=== PATIENT | female | born 1970 | race Caucasian/White ===

== ENCOUNTER 2021-11-04 09:56 | Outpatient (REF) | payer OTHER, SELFPAY ==
[2021-11-04 10:25] LABS: COVID-19 Test Negative (Negative)
== END 2021-11-04 09:57 | disposition home or self-care (01) ==
LOC: HO.LAB 09:56
PROVIDERS: Visit Provider Internal Medicine
DX: Z20.822 Contact with and (suspected) exposure to COVID-19 (principal)
CPT/HCPCS: 87635; C9803

== ENCOUNTER 2022-02-05 23:50 | Emergency (ER) | payer OTHER, SELFPAY ==
[2022-02-06 00:08] VITALS: BP 132/71; PULSE 95; O2SAT 98
[2022-02-06 00:09] VITALS: BP 128/71; PULSE 73; RESP 16; TEMP 37; O2SAT 99; BMI 28.7
[2022-02-06 00:57] VITALS: BP 102/56; PULSE 71; RESP 16; TEMP 36.8; O2SAT 97
--- NOTE | 2022-02-06 01:12 | ED.BACK ---
HPI - Back Pain/Injury General Chief Complaint: Back Pain/Injury Stated Complaint: back pain Time Seen by Provider: 02/06/22 00:58 Source: patient Mode of arrival: EMS Limitations: no limitations History of Present Illness HPI Narrative: 51-year-old female who presents emergency department for evaluation of lower back pain and left hip pain. The patient states that she has a history of chronic lower back pavement secondary to disc disease. She states that she has L4-L5 disc disease amp injuring the nerves causing her to have pain in both her legs. She states she is scheduled for a surgery March 2022. She states that over the past 2 days she has had increased lower back pain. She also states she is having severe pain and the left hip which radiates down her left leg. She has had similar pain in her left lateral hip area in the past. states that in the past she has had a steroid injection over the left hip area which is improved this pain. She states that the left hip pain is a constant, sharp pain which is 10/10 and is worse with movement of the left hip. She states that she had a recent MRI of her lower back and an x-ray of her left hip which revealed no significant issues with the hip. Patient also has a history of COPD. She states that she has had increased cough over the past 1-2 days. The cough is productive of thick, brown sputum with no blood in the sputum. She denied fever, chills, rhinorrhea, chest pain. She states that she does feel short of breath but this is chronic secondary to her COPD. She continues to smoke 1/2 pack of cigarettes per day. MD elicited complaint: back pain and other (Left lateral hip pain) Pertinent past history: prior back pain and other (L4-L5 disc disease) Onset (ago): day(s) (2) Timing: constant Severity: severe Pain scale (0-10): 10 Similar Symptoms Previously: Yes Quality: sharp Location: lumbar spine and left lower back Radiation: left leg below the knee and right leg below the knee Exacerbating factors: movement Relieving factors: none Associated symptoms: difficulty walking Work related injury: No Related Data Previous Rx's Medication Instructions Recorded azithromycin 250 mg tablet See Rx Instructions .ROUTE 02/06/22 (Zithromax Z-Fermin) .COMPLEX #6 tab ibuprofen 600 mg tablet 600 mg PO Q6H PRN #30 tab 02/06/22 morphine 15 mg immediate release 15 mg PO Q4-6H PRN #10 tab 02/06/22 tablet Allergies Allergy/AdvReac Type Severity Reaction Status Date / Time No Known Allergies Allergy Unverified 06/17/20 18:09 [No Known Allergies*] [facility] Past Medical History [facility] Narrative: Past medical history: Chronic back pain secondary to disc disease, COPD, bronchitis. Social history: She smokes 1/2 pack of cigarettes per day times 37 years. She denies alcohol use. She smokes marijuana daily. She states that she has a remote history opiate use and currently takes Suboxone 4 mg daily. Medical History (Updated 02/06/22 @ 01:33 by Kody Ortega MD) Anxiety COPD (chronic obstructive pulmonary disease) Social History Social History Advance Directives: No Advance Directives Information Provided: Yes Physical Exam Vital Signs: Vital Signs: Last Vital Signs Temp 98.3 F 02/06/22 00:57 Pulse 71 02/06/22 00:57 Resp 16 02/06/22 00:57 BP 102/56 L 02/06/22 00:57 Pulse Ox 97 02/06/22 00:57 BMI result Body Mass Index 28.7 Const: General: cooperative and no acute distress Orientation/consciousness: oriented to person and oriented to place Limitations: no limitations HEENT: Head: Yes normal to inspection, Yes normocephalic and Yes atraumatic Ears: external ears normal General nose exam: Normal external nose present Face and sinus: Yes normal facial exam Mouth: Normal oral and palatal mucosa present Throat: Yes posterior oropharynx normal Eyes: General: appearance normal, both eyes and all related structures Pupils: Equal, round and reactive pupils present Neck: Neck: Yes normal visual inspection, Yes no lymphadenopathy, Yes trachea midline and Yes supple Chest: Chest palpation & inspection: normal inspection of the chest and normal palpation of entire chest wall Resp: Effort & Inspection: normal respiratory effort and able to speak in complete sentences Auscultation: rhonchi (Diffuse) Cardio: Rate: regular rate Rhythm: regular rhythm Heart sounds: S1 normal heart sound present, S2 normal heart sound present and no murmurs GI: Inspection: Yes normal to inspection Palpation (GI): Soft to palpation, nontender and no guarding Auscultation: normal bowel sounds Back/Spine/Pelvis: Other: Patient has tenderness with palpation of her lumbar spine and the lumbar sacral paraspinal muscles bilaterally. She has negative straight leg raises bilaterally. Skin: General skin exam: no rashes or lesions noted Neuro: General: oriented to person and oriented to place Cranial nerves: Yes CN's II-XII intact bilaterally and Yes Equal, round and reactive pupils present Cognition (Neuro): normal cognition Motor exam (neuro): 5/5 motor strength present throughout Extrem: Other: Patient has very localize tenderness palpation over her left lateral greater trochanteric area, there is no increased warmth or erythema this area, she has no significant pain with flexion or extension of the left hip joint or with left hip rotation. Psych: Appearance: grossly normal Speech and movement: Normal speech and movement present Affect: normal affect Attitude: cooperative Thought process: Normal thought process present Thought content: Normal thought content present Course Course Course Narrative: 51-year-old female who presents emergency department for evaluation of lower back pain x2 days, left hip pain x2 days, productive cough and shortness of breath x2 days. Patient's vital signs were unremarkable. The patient does have pain with palpation of her lumbar spine and her lumbar paraspinal muscles. She also has pain with palpation over the left lateral hip over the trochanter bursa region. Lung exam did reveal diffuse rhonchi. At this time I suspect the patient does have left lateral greater trochanter bursitis and I will inject this area with Depo-Medrol 40 mg and lidocaine 5 cc. The patient's lumbar pain will be treated with morphine 8 mg IM. The patient will be started on Zithromax Z-Fermin for her bronchitis. Patient will be discharged home with a prescription for Z-Fermin and for morphine for her pain. Procedures Procedure Narrative Procedure Narrative: Right trochanteric bursa steroid injection: The patient did give me verbal informed consent to proceed with the procedure. The area maximal tenderness over the left trochanteric area was located. This area was cleaned with Betadine and alcohol wipes. Using an 18 gauge needle I injected 40 mg Depo-Medrol and 5 cc of lidocaine into the bursa area. The patient tolerated the procedure well. Discharge Plan Discharge Clinical Impression: Strain of lumbar region, Bursitis, trochanteric, Bronchitis Patient Disposition: Home, Self-Care Instructions: Hip Bursitis (ED), Acute Bronchitis (ED), Acute Low Back Pain (ED) Additional Instructions: You have tenderness over your left hip bursa, this is consistent with bursitis. Your injected with 40 mg of Depo-Medrol (this is a long-acting steroid) and 5 mL of lidocaine. Sometimes 1-2 days after injection the pain can get worse but the pain should improve by day 3-4 and hopefully resolve completely after 1 week. You also received morphine 8 mg IM for your back pain. Take ibuprofen 600 mg pills, 1 pills every 6 hours as needed for pain. Take Tylenol (acetaminophen) 500 mg pills, 2 pills every 4-6 hours as needed for pain. For pain not relieved by ibuprofen or Tylenol take morphine 15 mg pills, 1 pill every 4 hours as needed for pain. Do not drive or work while taking this medication since they can cause sleepiness. Morphine is a narcotic medication that can be addicting. If you are concerned about addiction you can ask the pharmacist for less pills or do not get this prescription filled. I also believe that you have bronchitis. Take Zithromax (azithromycin) Z-Fermin as prescribed. Day 1 take 2 pills, each day after that take 1 pill for total of 5 days. This medication states in your system for 7-10 days and continues to work despite only taking it for 5 days. Follow-up with your doctor in 2 days. Please return to the emergency department if your symptoms get worse or if you develop any symptoms that are concerning to you. Prescriptions: New azithromycin [Zithromax Z-Fermin] 250 mg tablet See Rx Instructions .ROUTE .COMPLEX Qty: 6 0RF Rx Instructions: take 500 mg today (day 1), then 250 mg for 4 days (days 2-5) morphine 15 mg tablet 15 mg PO Q4-6H PRN (Reason: pain) Qty: 10 0RF Rx Instructions: The patient may ask for partial fill ibuprofen 600 mg tablet 600 mg PO Q6H PRN (Reason: pain) Qty: 30 0RF
[2022-02-06] MEDS: Morphine Sulfate 10 MG/ML CARTRIDGE 8 MG IM (01:24)
[2022-02-06 02:00] VITALS: BP 100/64; PULSE 71; RESP 16; TEMP 36.6; O2SAT 95
[2022-02-06] MEDS: Lidocaine HCl 1 % MPF 5 ML VIAL INFILTRATI (02:01)
[2022-02-06] MEDS: methylPREDNISolone acetate 40 MG VIAL IM (02:05)
--- NOTE | 2022-02-06 02:20 | PC.NURSE ---
I assumed care of this patient upon her arrival to bed 7. She presents for evaluation of severe back pain acute on chronic. She was administered IM Morphine and IM Depo-medrol (by Shannon MCGRAW - was unable to scan barcode for DepoMedrol despite multiple attemptes. Right drug/dose/route./patient/times all verified prior to admin.) Pt discharged. She verbalized an understnading of all DC orders and ambulated out of the ED independently and with steady gait.
== END 2022-02-06 02:22 | disposition home or self-care (01) ==
PROVIDERS: Emergency Provider Emergency Medicine Emergency Medical Services
DX: M54.50 Low back pain, unspecified (principal); M70.62 Trochanteric bursitis, left hip; J40 Bronchitis, not specified as acute or chronic; F17.210 Nicotine dependence, cigarettes, uncomplicated; Z71.6 Tobacco abuse counseling; Z79.899 Other long term (current) drug therapy
CPT/HCPCS: 20610; 96372; 99283; 99284; J1020; J1040; J2270; J2920

== ENCOUNTER 2022-06-07 15:45 | Emergency (ER) | payer OTHER, SELFPAY ==
[2022-06-07 16:18] VITALS: BP 95/82; PULSE 86; RESP 19; TEMP 36.9; O2SAT 97; BMI 28.7
== END 2022-06-07 21:37 | disposition left against medical advice (07) ==
LOC: HO.ED 21:23
PROVIDERS: Emergency Provider Emergency Medicine; PCP Radiology Radiation Oncology
DX: R22.43 Localized swelling, mass and lump, lower limb, bilateral (principal); M25.552 Pain in left hip
CPT/HCPCS: 99281

== ENCOUNTER 2022-06-10 01:27 | Emergency (ER) | payer OTHER, SELFPAY ==
[2022-06-10 01:36] VITALS: BP 111/54; BP 131/82; PULSE 100; PULSE 76; RESP 20; TEMP 36.9; O2SAT 97; O2SAT 99; BMI 34.4
--- NOTE | 2022-06-10 01:45 | ED.EXTPRO ---
HPI - Extremity Problem General Chief complaint: Extremity Injury, Lower Stated complaint: Headache s/p spinal infusion Time Seen by Provider: 06/10/22 01:32 Source: patient and old records reviewed Mode of arrival: EMS Limitations: no limitations History of Present Illness Complaint: joint pain Onset (ago): day(s) (2) Pain Consistency: constant Location: left and lower extremity Quality: burning and stabbing Radiation: distal Relieving factors: immobilization Exacerbating factors: weight bearing, walking and palpation Associated symptoms: denies other symptoms Context: other (recent back surgery, hx of prior L hip pain states injections help in the past - she is here asking for another steroid injection. reports she just had normal US of the leg for DVT, normal labs, negative xray for injury, cannot take the pain tonight) Related Data Previous Rx's Medication Instructions Recorded azithromycin 250 mg tablet See Rx Instructions PO .COMPLEX #6 02/06/22 (Zithromax Z-Fermin) tabs ibuprofen 600 mg tablet 600 mg PO Q6H PRN pain #30 tabs 02/06/22 morphine 15 mg immediate release 15 mg PO Q6H PRN pain 3 days #8 02/06/22 tablet tabs Allergies Allergy/AdvReac Type Severity Reaction Status Date / Time No Known Allergies Allergy Unverified 06/17/20 18:09 [No Known Allergies*] Review of Systems Review of Systems: Constitutional : No Fever, No Chills ENT/Mouth : No Ear Pain, No Hoarseness, No sore throat Eyes: No Eye Pain, No Swelling, No Redness, No Foreign Body Cardiovascular : No Chest Pain, No SOB Respiratory : No Cough, No Dyspnea Gastrointestinal : No Nausea, No Vomiting, No Diarrhea, No abdominal Pain Genitourinary : No Dysuria, No Hematuria Musculoskeletal : positive joint pain, No Myalgias, No Joint Swelling Skin : No Skin lacerations, No rash Neuro : No Weakness, No Numbness, No Loss of Consciousness, No Dizziness, No Headache Psych : No Anxiety/Panic, No Depression Heme/Lymph: no easy bruising, no Lymphadenopathy Endocrine : No Polyuria, No Polydipsia All other systems reviewed and are negative PMFSH Past Medical History Attestation statement: The following information was validated with the patient. Medical History Anxiety Bursitis Chronic back pain COPD (chronic obstructive pulmonary disease) Social History Social History (Updated 06/10/22 @ 01:45 by Verónica Castellano DO) Patient Tobacco Use Status: Current everyday Tobacco user Substance Use Type: Former Substance User Advance Directives: No Advance Directives Information Provided: No Physical Exam Vital Signs: Vital Signs: Last Vital Signs Temp 98.4 F 06/10/22 01:36 Pulse 100 06/10/22 01:36 Resp 20 06/10/22 01:36 BP 131/82 06/10/22 01:36 Pulse Ox 97 06/10/22 01:36 O2 Del Method 06/10/22 01:36 BMI result Body Mass Index 34.4 Appearance: Alert. Oriented X3. No acute distress. Anxious Eyes: Pupils equal, round and reactive to light. ENT: Pharynx normal. Neck: Normal inspection. Neck supple. CVS: Normal heart rate and rhythm. Pulses normal. Respiratory: No respiratory distress. Breath sounds normal. Abdomen: Soft and nontender. Skin: Skin warm and dry. Normal skin color. Normal skin turgor. Extremities: 1+ pitting lower extremity edema. L hip ttp along upper area and bursa no erythema noted Neuro: Oriented X 3. No motor deficit. No sensory deficit. Course Course Course Narrative: patient given injection now states she wants to leave and deal with her pain at home standing up and ready to walk out. MDM - Extremity (Nontraumatic) MDM Narrative Medical decision making narrative: 51 yo female with hx of COPD, anxiety, chronic pain prior substance abuse on suboxone reports worsening L hip pain she does have good outpatient care including recent negative DVT study, normal labs and xray. She is due for a MRI as well. She is here c/o pain she is NV intact no signs of infection. Asking for steroid injection - will perform. At this time will give valium for anxiolytic. Procedures Procedure Narrative Procedure Narrative: L trochanteric bursa steroid injection: The patient did give me verbal informed consent to proceed with the procedure at her request.? The area maximal tenderness over the left trochanteric area was located.? This area was cleaned with Betadine and alcohol wipes.? Using an 18 gauge needle I injected 40 mg Depo-Medrol and 5 cc of lidocaine into the bursa area.? The patient tolerated the procedure well. Discharge Plan Discharge Clinical Impression: Acute pain of left hip Bursitis of hip Qualifiers: Hip bursitis location: trochanteric bursitis Laterality: left Qualified Code(s): M70.62 - Trochanteric bursitis, left hip Patient Disposition: Home, Self-Care Instructions: Hip Bursitis (ED), Hip Pain (ED) Additional Instructions: return to ED for any worsening symptoms or concerns you were given an injection as requested in the ED. Monitor for any increased redness, swelling, pain, yellow drainage or fevers please follow up with your doctors Prescriptions: No Action azithromycin [Zithromax Z-Fermin] 250 mg tablet See Rx Instructions .ROUTE .COMPLEX Qty: 6 0RF Rx Instructions: take 500 mg today (day 1), then 250 mg for 4 days (days 2-5) ibuprofen 600 mg tablet 600 mg PO Q6H PRN (Reason: pain) Qty: 30 0RF morphine 15 mg tablet 15 mg PO Q6H PRN (Reason: pain) 3 Days Qty: 8 0RF Rx Instructions: patient may partial fill - okay
[2022-06-10] MEDS: diazePAM 2 MG TABLET 5 MG PO (01:57)
[2022-06-10] MEDS: methylPREDNISolone acetate 40 MG VIAL INTRAARTIC (03:23)
== END 2022-06-10 03:44 | disposition home or self-care (01) ==
PROVIDERS: Emergency Provider Emergency Medicine
DX: M70.62 Trochanteric bursitis, left hip (principal); Y93.9 Activity, unspecified; M25.552 Pain in left hip; R60.0 Localized edema; F11.20 Opioid dependence, uncomplicated
CPT/HCPCS: 20610; 99282; 99284; J1020; J1040; J2920

== ENCOUNTER 2022-12-14 15:46 | Emergency (ER) | payer OTHER, SELFPAY ==
--- NOTE | ~2022-12-14 | XR_ITS ---
EXAMINATION: XR CHEST CLINICAL INFORMATION: Shortness of breath COMPARISON: 11/10/2014 TECHNIQUE: Frontal view of the chest was obtained. FINDINGS: Heart size normal. Scoliosis with Hunt rods present. There is a new area of infiltration seen in the right upper lobe consistent with pneumonia. Left basilar atelectasis is present. No pleural effusions. No gross CHF. XR/XR chest 1V IMPRESSION: Right upper lobe pneumonia.
[2022-12-14 16:02] VITALS: BP 133/78; BP 138/89; PULSE 108; PULSE 96; RESP 24; TEMP 37.1; O2SAT 100; O2SAT 94; BMI 35.6
--- NOTE | 2022-12-14 18:33 | ECG_ITS ---
Test Reason : sob Blood Pressure : / mmHG Vent. Rate : 081 BPM Atrial Rate : 081 BPM P-R Int : 184 ms QRS Dur : 088 ms QT Int : 358 ms P-R-T Axes : 063 053 044 degrees QTc Int : 415 ms Normal sinus rhythm Normal ECG No previous ECGs available Referred By: Dorothy Chambers Electronically Signed By:Darryl Gentile
[2022-12-14 19:12] LABS: COVID-19 Test Negative (Negative); IDNOW Serial# 55D5AD1C
[2022-12-14 19:31] VITALS: BP 136/67; PULSE 86; RESP 19; TEMP 36.7; O2SAT 94
[2022-12-14] MEDS: methylPREDNISolone Sod Succ 125 MG/2 ML VIAL IVPUSH (20:20)
[2022-12-14] MEDS: Azithromycin 500 MG TABLET PO (20:20)
[2022-12-14] MEDS: ondansetron HCL 4 MG/2 ML VIAL IVPUSH (20:20)
[2022-12-14] MEDS: Amoxicillin/Potassium Clav 500 MG TABLET PO (20:20)
[2022-12-14] MEDS: 0.9 % Sodium Chloride 1,000 ML 999 ML IV (20:20)
[2022-12-14] MEDS: Morphine Sulfate 4 MG/ML CARTRIDGE IVPUSH (20:20)
[2022-12-14 20:33] VITALS: PULSE 92; RESP 18
--- NOTE | 2022-12-14 20:33 | ED_ITS ---
HPI - General Adult General Chief complaint: General Medical Stated complaint: difficulty breathing Time Seen by Provider: 12/14/22 19:58 Source: patient and RN notes reviewed Mode of arrival: EMS Limitations: no limitations History of Present Illness HPI narrative: 52-year-old female past medical history significant for asthma presents for evaluation of shortness of breath and left hip pain. Patient reports that she has a history of left hip bursitis that ?flares up every now and then. ? She reports that she tried to get an appointment with her cigar head puncher to get a ?cortisone injection but they could not get me and today. ? She complains of 10/10 pain to the left hip. She also states that she has had increasing shortness of breath for the last 3 months. Patient reports that she finished a course of doxycycline about 2 weeks ago. She also reports that she was diagnosed with ?nodules on my lung. ? She reports that she is in the middle of a workup for that Patient reports that she continues to smoke but ?I am trying to cut back since I was diagnosed with my nodules. ? Denies any fevers, chills Patient reports that she is out of her rescue inhaler Related Data Previous Rx's Medication Instructions Recorded azithromycin 250 mg tablet See Rx Instructions PO .COMPLEX #6 02/06/22 (Zithromax Z-Fermin) tabs ibuprofen 600 mg tablet 600 mg PO Q6H PRN pain #30 tabs 02/06/22 morphine 15 mg immediate release 15 mg PO Q6H PRN pain 3 days #8 02/06/22 tablet tabs albuterol sulfate 90 mcg/actuation 1 inh inhalation QID PRN shortness 12/14/22 aerosol inhaler of breath or wheezing #8.5 grams amoxicillin 500 mg-potassium 1 tab PO BID #14 tabs 12/14/22 clavulanate 125 mg tablet (Augmentin) azithromycin 250 mg tablet 250 mg PO DAILY 4 days #4 tabs 12/14/22 fluconazole 100 mg tablet 100 mg PO DAILY #1 tab 12/14/22 (Diflucan) oxycodone-acetaminophen 5 mg-325 1 tab PO Q8H PRN pain #12 tabs 12/14/22 mg tablet (Percocet) Allergies Allergy/AdvReac Type Severity Reaction Status Date / Time No Known Allergies Allergy Verified 12/14/22 16:01 [No Known Allergies*] Review of Systems Constitutional: Constitutional: Reports as per HPI, Denies chills, Denies fever(s) and Denies headache(s) ENT: Denies headache(s) Cardiovascular: Cardiovascular: Denies chest pain and Reports dyspnea Respiratory: Respiratory: Reports chest congestion, Reports cough, Reports pain with cough, Reports dyspnea and Reports wheezing Gastrointestinal: Gastrointestinal: Denies abdominal pain, Denies constipation and Denies vomiting Genitourinary: Genitourinary: Denies dysuria Musculoskeletal: Comments: Reports left hip pain Neurologic: Denies headache(s) and Denies focal weakness Allergic/Immunologic: Allergic/Immunologic: Reports wheezing PMFSH Past Medical History Medical History Anxiety Bursitis Chronic back pain COPD (chronic obstructive pulmonary disease) Social History Social History (Updated 06/10/22 @ 01:45 by Verónica Castellano DO) Patient Tobacco Use Status: Current everyday Tobacco user Substance Use Type: Former Substance User Advance Directives: No Advance Directives Information Provided: Yes Physical Exam ED Vital Signs: Vital Signs - 24 hr 12/14/22 16:02 12/14/22 19:31 Temperature 98.7 F 98.1 F Pulse Rate 96 86 Respiratory Rate 24 H 19 Blood Pressure 138/89 136/67 Pulse Oximetry 94 94 Oxygen Delivery Method Room Air Nasal Cannula Oxygen Flow Rate 2 BMI result Body Mass Index 35.6 Const General: healthy appearing, comfortable, no acute distress, alert and awake Nutritional Appearance: well nourished Orientation/consciousness: patient oriented x3 HENMT Head: Yes normocephalic and Yes atraumatic Throat: Yes posterior oropharynx normal Eyes Eyelids: Yes eyelids normal Conjunctivae: conjunctivae normal Sclerae: sclerae normal Corneas: corneas normal Pupils: Equal, round and reactive pupils present EOM: EOMs intact bilaterally Neck Neck: Yes full ROM Resp Effort & Inspection: normal respiratory effort, able to speak in complete sentences, no audible wheezes and not labored Auscultation: rhonchi right upper and wheezes throughout Cardio Rate: regular rate Rhythm: regular rhythm GI Inspection: No distended Palpation (GI): Soft to palpation, not firm, nontender, no guarding and not rigid Auscultation: normoactive bowel sounds Skin General skin exam: no rashes or lesions noted and elasticity normal Neuro General: patient oriented x3 Cranial nerves: Yes CN's II-XII intact bilaterally, Yes Equal, round and reactive pupils present and Yes Bilaterally intact EOM present Cognition (Neuro): normal cognition Extrem Other: Moving all extremities well without any obvious deformities General: Yes normal to inspection Left lower extremity: normal to inspection and hip/thigh (Tenderness to palpation all left hip without any increased warmth ) Medications Administered Generic Name Dose Route Start Last Admin Trade Name Freq PRN Reason Stop Dose Admin Sodium Chloride 1,000 mls @ 999 mls/hr 12/14/22 20:15 12/14/22 20:20 Ns IV 12/14/22 21:15 999 mls/hr .Q1H1M CASSIA Administration Discontinued Medications Generic Name Dose Route Start Last Admin Trade Name Freq PRN Reason Stop Dose Admin Amoxicillin/Clavulanate Potassium 500 mg 12/14/22 20:10 12/14/22 20:20 Amoxicillin/Potassium Clav 500 Mg Tablet PO 12/14/22 20:11 500 mg ONCE ONE Administration Azithromycin 500 mg 12/14/22 20:10 12/14/22 20:20 Azithromycin 500 Mg Tablet PO 12/14/22 20:11 500 mg ONCE ONE Administration Albuterol Sulfate 5 mg/ 0 mg 12/14/22 20:05 12/14/22 20:27 Ipratropium [place] 0.5 mg INHALE 12/14/22 20:06 1 each ONCE ONE Administration Methylprednisolone Sodium Succinate 125 mg 12/14/22 20:05 12/14/22 20:20 Methylprednisolone Sod Succ 125 Mg/2 Ml Vial IVPUSH 12/14/22 20:06 125 mg ONCE ONE Administration Morphine Sulfate 4 mg 12/14/22 20:05 12/14/22 20:20 Morphine Sulfate 4 Mg/Ml Cartridge IVPUSH 12/14/22 20:06 4 mg ONCE ONE Administration Protocol Ondansetron HCl 4 mg 12/14/22 20:05 12/14/22 20:20 Ondansetron Hcl 4 Mg/2 Ml Vial IVPUSH 12/14/22 20:06 4 mg ONCE ONE Administration Medical Decision Making Medical Decision Making MDM Narrative: 52-year-old female with past medical history significant for asthma and currently smoking presents for evaluation of shortness of breath. She also complains of left hip pain. Her hip pain has diagnosis of left hip bursitis. She is hoping for a cortisone injection. Unfortunately I cannot do a cortisone injection for her and she will have to follow up with her cigar head puncher for this. We will treat her discomfort in the meantime with Percocet. The patient's x-ray shows a right upper lobe pneumonia is fairly small. We will treat with Augmentin and azithromycin. Patient will follow-up with her PCP for this. We will discharge her with fluconazole at her request she reports frequent yeast infections after being treated with antibiotics. We will also discharge her with a rescue inhaler Differential Diagnosis Pneumonia Bronchitis Upper respiratory infection Hip bursitis Hip pain Lab Data Labs: Lab Results 12/14/22 Range/Units 18:49 COVID-19 ([facility]) Negative (Negative) COVID-19 Clin Com See Note Independent Interpretation I performed an independent interpretation of an: Plain X-Ray Interpretation: Right upper lobe pneumonia Discharge Plan Discharge Clinical Impression: Community acquired pneumonia, Bursitis of left hip Patient Disposition: Home, Self-Care Instructions: Community Acquired Pneumonia (ED) Additional Instructions: Take Augmentin twice daily for the next 7 days. Take azithromycin 1 pill daily for the next 4 days starting tomorrow as your 1st dose was given in the ER. Your x-ray shows a right upper lobe pneumonia. Follow-up with your cigar head puncher for your cortisone injection. In the meantime he may take Percocet for severe or breakthrough pain Take fluconazole when you finish your antibiotics Prescriptions: New azithromycin 250 mg tablet 250 mg PO DAILY 4 Days Qty: 4 0RF Rx Instructions: start on day 2 of therapy amoxicillin-pot clavulanate [Augmentin] 500-125 mg tablet 1 tab PO BID Qty: 14 0RF albuterol sulfate 90 mcg/actuation HFA aerosol inhaler 1 inh inhalation QID PRN (Reason: shortness of breath or wheezing) Qty: 8.5 0RF oxycodone-acetaminophen [Percocet] 5-325 mg tablet 1 tab PO Q8H PRN (Reason: pain) Qty: 12 0RF Rx Instructions: Partial Fill upon patient request. fluconazole [Diflucan] 100 mg tablet 100 mg PO DAILY Qty: 1 0RF No Action azithromycin [Zithromax Z-Fermin] 250 mg tablet See Rx Instructions .ROUTE .COMPLEX Qty: 6 0RF Rx Instructions: take 500 mg today (day 1), then 250 mg for 4 days (days 2-5) ibuprofen 600 mg tablet 600 mg PO Q6H PRN (Reason: pain) Qty: 30 0RF morphine 15 mg tablet 15 mg PO Q6H PRN (Reason: pain) 3 Days Qty: 8 0RF Rx Instructions: patient may partial fill - okay
--- NOTE | 2022-12-14 20:47 | PC.NURSE ---
pt medicated per provider order, IV infiltrated. pt declined additional IV for the remainder of ivf.
== END 2022-12-14 20:57 | disposition home or self-care (01) ==
PROVIDERS: Physician Assistant; Emergency Provider Emergency Medicine; PCP Internal Medicine
DX: J18.8 Other pneumonia, unspecified organism (principal); M70.72 Other bursitis of hip, left hip; Z20.822 Contact with and (suspected) exposure to COVID-19; F17.200 Nicotine dependence, unspecified, uncomplicated
CPT/HCPCS: 71045; 87635; 93005; 94640; 96374; 96375; 99284; J2270; J2405; J2930

== ENCOUNTER 2023-03-10 20:45 | Emergency (ER) | payer OTHER, SELFPAY ==
--- NOTE | 2023-03-10 | ECG_ITS ---
Test Reason : SWOLLEN LEGS Blood Pressure : / mmHG Vent. Rate : 098 BPM Atrial Rate : 098 BPM P-R Int : 160 ms QRS Dur : 086 ms QT Int : 338 ms P-R-T Axes : 068 061 030 degrees QTc Int : 431 ms Normal sinus rhythm Possible Left atrial enlargement T wave abnormality, consider inferior ischemia Abnormal ECG When compared with ECG of 14-DEC-2022 19:18, No significant change was found Referred By: Generic ED Physician Electronically Signed By:Darryl Gentile
--- NOTE | ~2023-03-10 | US_ITS ---
EXAMINATION: US VENOUS ULTRASOUND WITH DOPPLER LOWER EXTREMITY, BILATERAL CLINICAL INFORMATION: Edema. COMPARISON: None available. TECHNIQUE: Ultrasound of the deep veins is performed from the hip to the calf with compression sonography and color and pulse Doppler assessment. Spectral analysis with color-flow imaging is performed. FINDINGS: RIGHT: There is normal venous compression and respiratory variation and augmented flow. The visualized common femoral vein, superficial femoral vein, profunda femoral vein and popliteal vein shows no evidence of deep venous thrombosis. Suboptimal evaluation of the peroneal veins. Visualized segments of the posterior tibialis veins are patent. There is no significant popliteal fossa cyst. Soft tissue thickening and fluid in the popliteal fossa. LEFT: There is normal venous compression and respiratory variation and augmented flow. The visualized common femoral vein, superficial femoral vein, profunda femoral vein and popliteal vein shows no evidence of deep venous thrombosis. Suboptimal evaluation of the peroneal veins. Visualized segments of the posterior tibialis veins are patent. There is no significant popliteal fossa cyst. If the patient's symptoms persist, followup ultrasound in 5 days 7 days might be of value to exclude proximal propagation from a non-visualized calf vein. US/US venous duplex LE IMPRESSION: 1. No DVT demonstrated in the bilateral lower extremities with the caveat of suboptimal evaluation of the peroneal veins in both calves. 2. Nonspecific soft tissue thickening with fluid in the right popliteal fossa, recommend clinical correlation for phlegmonous changes/cellulitis. No organized collection.
[2023-03-10 20:53] VITALS: BP 164/80; PULSE 113; O2SAT 92
[2023-03-10 21:02] VITALS: BP 168/84; PULSE 114; RESP 16; TEMP 36.8; O2SAT 95; BMI 34.2
[2023-03-10 21:04] VITALS: BP 168/84; PULSE 114; RESP 16; TEMP 36.8; O2SAT 95
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
[2023-03-10 21:45] LABS: MANUAL DIFF FLAG NO
[2023-03-10 21:49] LABS: Basophils Absolute Auto 0.1 X10*3/uL (0.0-0.2); Basophils Percent Auto 0.9 % (0-2); Eosinophils Absolute Auto 0.4 X10*3/uL (0.0-0.4); Eosinophils Percent Auto 5.2 % (0-4); Hematocrit 41.6 % (37.0-47.0); Hemoglobin 13.8 g/dl (12.0-16.0); Imm Gran Abs Auto 0.02 X10*3/uL (0.00-0.03); Imm Gran Pct Auto 0.2 % (0.0-0.4); Lymphocytes Percent Auto 23.5 % (20-40); Mean Corpuscular HGB Conc 33.2 g/dl (31.0-35.0); Mean Corpuscular Hemoglobin 30.6 pg (27.0-33.0); Mean Corpuscular Volume 92.2 fL (80.0-98.0); Mean Platelet Volume 8.6 fL (9.4-12.3); Monocytes Absolute Auto 1.2 X10*3/uL (0.1-1.2); Monocytes Percent Auto 14.7 % (2-11); Neutrophils Absolute Auto 4.7 x10*3/uL (2.0-8.3); Neutrophils Percent Auto 55.5 % (45-73); Platelet Count 301 X10*3/uL (160-400); Red Blood Count 4.51 X10*6/uL (4.20-5.50); Red Cell Distribution Width 14.5 % (11.0-16.0); White Blood Count 8.5 X10*3/uL (4.8-10.8)
[2023-03-10 21:59] LABS: Lactic Acid 1.1 mmol/L (0.5-2.0)
[2023-03-10 22:05] LABS: Alanine Aminotransferase 13 U/L (0-31); Albumin Level 3.1 g/dL (3.5-5.0); Alkaline Phosphatase 90 U/L (39-117); Anion Gap 12 (12-20); Aspartate Amino Transferase 17 U/L (5-31); Bilirubin Total 0.4 mg/dL (0.0-1.0); Blood Urea Nitrogen 3 mg/dL (9-16); Calcium 9.5 mg/dL (8.4-10.2); Carbon Dioxide 34 mmol/L (22-29); Chloride 96 mmol/L (96-108); Creatinine Clr Calc Pharmacy 134.3; Estimated Glomerular Filt Rate > 60; Glucose Random 118 mg/dL (60-115); Potassium 2.9 mmol/L (3.3-5.1); Sodium 139 mmol/L (135-145); Total Protein 6.4 g/dL (6.5-8.0)
[2023-03-10] MEDS: Potassium Chloride Packet 20 MEQ PACKET 40 MEQ PO (22:23)
[2023-03-10] MEDS: Doxycycline Monohydrate 100 MG CAPSULE PO (22:23)
--- NOTE | 2023-03-10 23:28 | ED_ITS ---
HPI - General Adult General Chief complaint: Extremity Problem Stated complaint: ? od Time Seen by Provider: 03/10/23 21:32 Source: patient and EMS Mode of arrival: EMS Limitations: no limitations History of Present Illness HPI narrative: 52-year-old female with metastatic lung cancer presents with decreased respon siveness. Patient is on a significant amount of narcotic analgesics including long-acting morphine and as needed oxycodone 30 mg every 4 hours. Patient typically has her medications in a pill box. It appears that she may have taken an extra dose of her pain medication earlier than expected. She denies any suicidal homicidal ideation. She is potentially due to start chemotherapy, radiation, etc.. Patient overall feels well with no significant complaints at this time. She does report lower extremity edema has been slightly getting worse. She also notes bolus formation. She denies any fevers or chills. She has pain of the lower extremities particular with palpation. Has been watery s erosanguineous discharge today especially from the left leg. She reports that her skin is quite sensitive to pain, light as well as palpation and abrasions Related Data Previous Rx's Medication Instructions Recorded azithromycin 250 mg tablet See Rx Instructions PO .COMPLEX #6 02/06/22 (Zithromax Z-Fermin) tabs ibuprofen 600 mg tablet 600 mg PO Q6H PRN pain #30 tabs 02/06/22 morphine 15 mg immediate release 15 mg PO Q6H PRN pain 3 days #8 02/06/22 tablet tabs albuterol sulfate 90 mcg/actuation 1 inh inhalation QID PRN shortness 12/14/22 aerosol inhaler of breath or wheezing #8.5 grams amoxicillin 500 mg-potassium 1 tab PO BID #14 tabs 12/14/22 clavulanate 125 mg tablet (Augmentin) azithromycin 250 mg tablet 250 mg PO DAILY 4 days #4 tabs 12/14/22 fluconazole 100 mg tablet 100 mg PO DAILY #1 tab 12/14/22 (Diflucan) oxycodone-acetaminophen 5 mg-325 1 tab PO Q8H PRN pain #12 tabs 12/14/22 mg tablet (Percocet) doxycycline hyclate 100 mg tablet 100 mg PO BID #20 tabs 03/10/23 fluconazole 150 mg tablet 150 mg PO DAILY #1 tab 03/10/23 (Diflucan) Allergies Allergy/AdvReac Type Severity Reaction Status Date / Time No Known Allergies Allergy Verified 12/14/22 16:01 [No Known Allergies*] Review of Systems Review of Systems: CONSTITUTIONAL: Denies weight loss, fever and chills. HEENT: Denies changes in vision and hearing. RESPIRATORY: Denies SOB and cough. CV: Denies palpitations no CP. GI: Denies abdominal pain, nausea, vomiting and diarrhea. : Denies dysuria and urinary frequency. MSK: Positive myalgia and joint pain. SKIN: Positive rash and pruritus. NEUROLOGICAL: Denies headache and syncope. PSYCHIATRIC: Denies recent changes in mood. Denies anxiety and depression. All other ROS are negative unless in HPI [facility] Past Medical History Medical History Anxiety Bursitis Chronic back pain COPD (chronic obstructive pulmonary disease) Social History Social History Alcohol intake: never Patient Tobacco Use Status: Current everyday Tobacco user Smoked in Last 30 Days: Yes Use of substances other than those prescribed or required for medical reasons: No Substance Use Type: Former Substance User Advance Directives: No Advance Directives Information Provided: Yes Patient : No Physical Exam ED Vital Signs: Vital Signs - 24 hr 03/10/23 21:02 03/10/23 21:04 Temperature 98.3 F 98.3 F Pulse Rate 114 H 114 H Respiratory Rate 16 16 Blood Pressure 168/84 H 168/84 H Pulse Oximetry 95 95 Oxygen Delivery Method Room Air Room Air BMI result Body Mass Index 34.2 GEN: Well developed, no acute distress, alert, oriented HEENT: Normocephalic, atraumatic, normal external ears, nose appears normal, no oropharyngeal edema or exudates Eyes: Normal to appearance Neck: Supple, no lymphadenopathy Respiratory: Talks in complete sentences, no respiratory distress, clear to auscultation bilaterally Cardiovascular: Regular rate and rhythm, no murmurs rubs or gallops Abdomen: Soft, nontender, nondistended, no guarding, no rebound Back: No CVA tenderness Extremities: No clubbing cyanosis 2 to 3+ pitting edema, chronic skin changes, bullous formation Neurologic: No focal neurologic deficits, cranial nerves 2-12 intact, strength is 5/5 bilaterally Skin: No rash Course Course Course Narrative: The workup is complete. Patient is a 52-year-old female with metastatic lung cancer. She presents with possible accidental overdose of narcotic analgesics. She does have Narcan at home. Family is unaware of this. Family was counseled regarding the appropriate use of this medication. In any event, patient is alert, oriented, no focal deficits. She has 2+ to 3+ pitting edema in the lower extremities with some bullae. This is most likely due to venous stasis dermatitis however, will treat for possible cellulitis. Patient was started on doxycycline. She will continue this for 10 days in addition, patient reports history yeast infections associated with antibiotics. Will order Diflucan 150 mg orally to take once if needed. Medications Administered Discontinued Medications Generic Name Dose Route Start Last Admin Trade Name Freq PRN Reason Stop Dose Admin Doxycycline Monohydrate 100 mg 03/10/23 22:08 03/10/23 22:23 Doxycycline Monohydrate 100 Mg Capsule PO 03/10/23 22:09 100 mg ONCE ONE Administration Potassium Chloride 40 meq 03/10/23 22:08 03/10/23 22:23 Potassium Chloride Packet 20 Meq Packet PO 03/10/23 22:09 40 meq ONCE ONE Administration Medical Decision Making Medical Decision Making [facility] Narrative: Patient presents with possible overdose. Patient examination is unremarkable. She has a history of metastatic cancer. She is alert, oriented without focal deficits. She does have stasis dermatitis with possible cellulitic changes to the lower extremities. Will start patient on doxycycline. Will check for other possible etiologies of her altered mental status which could could include hypoglycemia, electrolyte abnormality, anemia. She is not suicidal homicidal. She does not warrant emergent psychiatric evaluation. This appears to be possibly accidental. Patient does have Narcan at home but family is not aware of this. Differential Diagnosis Differential Diagnoses: The differential diagnosis associated with the presentation includes (Stasis dermatitis, cellulitis, accidental overdose, metab olic abnormality, encephalopathy) Accidental overdose, cellulitis Admission/Observation Consideration of admission/observation: Escalation of care including admission/observation considered Lab Data [facility] Lab Attestation statement: I reviewed the patient's lab results. 03/10/23 21:40 03/10/23 21:40 Labs: Lab Results 03/10/23 03/10/23 03/10/23 Range/Units 21:40 21:40 21:40 WBC 8.5 (4.8-10.8) X10*3/uL RBC 4.51 (4.20-5.50) X10*6/uL Hgb 13.8 (12.0-16.0) g/dl Hct 41.6 (37.0-47.0) % MCV 92.2 (80.0-98.0) fL MCH 30.6 (27.0-33.0) pg MCHC 33.2 (31.0-35.0) g/dl RDW 14.5 (11.0-16.0) % Plt Count 301 (160-400) X10*3/uL MPV 8.6 L (9.4-12.3) fL Immature Gran % (Auto) 0.2 (0.0-0.4) % Neut % (Auto) 55.5 (45-73) % Lymph % (Auto) 23.5 (20-40) % [place] % (Auto) 14.7 H (2-11) % Eos % (Auto) 5.2 H (0-4) % Baso % (Auto) 0.9 (0-2) % Lymph # (Auto) 2.0 (1.2-4.9) X10*3/uL [place] # (Auto) 1.2 (0.1-1.2) X10*3/uL Eos # (Auto) 0.4 (0.0-0.4) X10*3/uL Baso # (Auto) 0.1 (0.0-0.2) X10*3/uL Abs Immat Gran (auto) 0.02 (0.00-0.03) X10*3/uL Absolute Neuts (auto) 4.7 (2.0-8.3) x10*3/uL Absolute Nucleated RBC 0.000 (0.0-0.012) X10*3/uL Nucleated RBC % (auto) 0.0 (0.0-0.2) /100WBC Sodium 139 (135-145) mmol/L Potassium 2.9 L (3.3-5.1) mmol/L Chloride 96 (96-108) mmol/L Carbon Dioxide 34 H (22-29) mmol/L Anion Gap 12 (12-20) BUN 3 L (9-16) mg/dL Creatinine 0.66 (0.5-1.4) mg/dL Estim Creat Clear Calc 134.3 Estimated GFR > 60 Random Glucose 118 H (60-115) mg/dL Lactic Acid 1.1 (0.5-2.0) mmol/L Calcium 9.5 (8.4-10.2) mg/dL Total Bilirubin 0.4 (0.0-1.0) mg/dL AST 17 (5-31) U/L ALT 13 (0-31) U/L Alkaline Phosphatase 90 (39-117) U/L Total Protein 6.4 L (6.5-8.0) g/dL Albumin 3.1 L (3.5-5.0) g/dL Independent Interpretation I performed an independent interpretation of an: Ultrasound (DVT) Radiology Impression Discussion of test interpretation with radiology: I have reviewed the radiolog ist's reading. Radiologist Impression: US/US venous duplex LE BI IMPRESSION: 1.? No DVT demonstrated in the bilateral lower extremities with the caveat of suboptimal evaluation of the peroneal veins in both calves. 2.? Nonspecific soft tissue thickening with fluid in the right popliteal fossa, recommend clinical correlation for phlegmonous changes/cellulitis. No organized collection. ? Dictated By: Jojo Hendrickson Signed By: <Electronically signed by Jojo? Madhavi in OV> 03/10/23 2331 Tests considered The following testing was considered but not selected: CT scan Prescription Management I considered prescription management with: Pain Medication and Antibiotic Chronic Conditions Patient?s care impacted by: Cancer Discharge Plan Discharge Clinical Impression: Cellulitis, Accidental overdose Patient Disposition: Home, Self-Care Instructions: Naloxone (Into the nose), Cellulitis (ED), Adult Overdose (ED) Prescriptions: New fluconazole [Diflucan] 150 mg tablet 150 mg PO DAILY Qty: 1 0RF doxycycline hyclate 100 mg tablet 100 mg PO BID Qty: 20 0RF No Action azithromycin [Zithromax Z-Fermin] 250 mg tablet See Rx Instructions .ROUTE .COMPLEX Qty: 6 0RF Rx Instructions: take 500 mg today (day 1), then 250 mg for 4 days (days 2-5) ibuprofen 600 mg tablet 600 mg PO Q6H PRN (Reason: pain) Qty: 30 0RF morphine 15 mg tablet 15 mg PO Q6H PRN (Reason: pain) 3 Days Qty: 8 0RF Rx Instructions: patient may partial fill - okay azithromycin 250 mg tablet 250 mg PO DAILY 4 Days Qty: 4 0RF Rx Instructions: start on day 2 of therapy amoxicillin-pot clavulanate [Augmentin] 500-125 mg tablet 1 tab PO BID Qty: 14 0RF albuterol sulfate 90 mcg/actuation HFA aerosol inhaler 1 inh inhalation QID PRN (Reason: shortness of breath or wheezing) Qty: 8.5 0RF oxycodone-acetaminophen [Percocet] 5-325 mg tablet 1 tab PO Q8H PRN (Reason: pain) Qty: 12 0RF Rx Instructions: Partial Fill upon patient request. fluconazole [Diflucan] 100 mg tablet 100 mg PO DAILY Qty: 1 0RF Referrals: Physician,Unknown J [Primary Care Provider] - (Primary care provider in 2-3 da ys)
== END 2023-03-10 23:55 | disposition home or self-care (01) ==
PROVIDERS: Emergency Provider Emergency Medicine
DX: T40.2X1A Poisoning by other opioids, accidental (unintentional), initial encounter (principal); R40.0 Somnolence; Y92.019 Unspecified place in single-family (private) house as the place of occurrence of the external cause; L03.116 Cellulitis of left lower limb; L03.115 Cellulitis of right lower limb; R60.0 Localized edema; C34.90 Malignant neoplasm of unspecified part of unspecified bronchus or lung; F17.210 Nicotine dependence, cigarettes, uncomplicated; Z79.899 Other long term (current) drug therapy
CPT/HCPCS: 36415; 80053; 83605; 85025; 87040; 93005; 93970; 99284

== ENCOUNTER 2023-06-29 16:22 | Emergency (ER) | payer OTHER, SELFPAY ==
[2023-06-29 16:39] VITALS: BP 100/59; BP 124/84; PULSE 109; RESP 18; TEMP 36.7; O2SAT 94; BMI 25.6
--- NOTE | 2023-06-29 16:53 | ED_ITS ---
HPI - Female Genitourinary General Chief complaint: Urogenital-Female Stated complaint: CATHETER DISLODGED Time Seen by Provider: 06/29/23 16:32 Source: patient and EMS Mode of arrival: EMS Limitations: no limitations History of Present Illness HPI Narrative: 52yoF with a PMHx of COPD, Chronic back pain, metastatic lung cancer who has a left hip fracture and Stearns in place was presenting to the ER via EMS for Stearns catheter to be removed. She reports that she is currently on hospice and is going for her 2nd opinion next week for possible treatment options and possibly being taken off hospice. Although she reports that she no longer wants his Stearns catheter in place she does not feel like she needs it. She reports she just wants the Stearns catheter removed she was to go back home. She does not want any labs, imaging she does not think she has UTI she denies any fevers, chills, vomiting, diarrhea or any other symptoms at this time is requesting to be discharged after Stearns is removed. She also does not want to speak to case management about any outpatient care reports that she already has hospice and is not happy with the hospice team that she is within she might change to a new hospice team. Otherwise she denies any other symptoms complaints or concerns at this time. MD elicited complaint: other (Requesting Stearns catheter to be removed) Onset (ago): day(s) (Today) Related Data Previous Rx's Medication Instructions Recorded azithromycin 250 mg tablet See Rx Instructions PO .COMPLEX #6 02/06/22 (Zithromax Z-Fermin) tabs ibuprofen 600 mg tablet 600 mg PO Q6H PRN pain #30 tabs 02/06/22 morphine 15 mg immediate release 15 mg PO Q6H PRN pain 3 days #8 02/06/22 tablet tabs albuterol sulfate 90 mcg/actuation 1 inh inhalation QID PRN shortness 12/14/22 aerosol inhaler of breath or wheezing #8.5 grams amoxicillin 500 mg-potassium 1 tab PO BID #14 tabs 12/14/22 clavulanate 125 mg tablet (Augmentin) azithromycin 250 mg tablet 250 mg PO DAILY 4 days #4 tabs 12/14/22 fluconazole 100 mg tablet 100 mg PO DAILY #1 tab 12/14/22 (Diflucan) oxycodone-acetaminophen 5 mg-325 1 tab PO Q8H PRN pain #12 tabs 12/14/22 mg tablet (Percocet) doxycycline hyclate 100 mg tablet 100 mg PO BID #20 tabs 03/10/23 fluconazole 150 mg tablet 150 mg PO DAILY #1 tab 03/10/23 (Diflucan) Allergies Allergy/AdvReac Type Severity Reaction Status Date / Time No Known Allergies Allergy Verified 12/14/22 16:01 [No Known Allergies*] Review of Systems Review of Systems: She denies fevers, chills, dizziness, headaches, chest pain or shortness of breath, abdominal pain, nausea vomiting or diarrhea or any other symptoms complaints or concerns at this time. Yes all other systems are reviewed and are negative [facility] Past Medical History Attestation statement: The following information was validated with the patient. Source: old records reviewed and nursing notes reviewed Medical History Bursitis Chronic back pain COPD (chronic obstructive pulmonary disease) Anxiety Social History Social History Alcohol intake: never Patient Tobacco Use Status: Current everyday Tobacco user Substance Use Type: Former Substance User Physical Exam Vital Signs: Vital Signs: Last Vital Signs Temp 98.1 F 06/29/23 16:39 Resp 18 06/29/23 16:39 BP 100/59 L 06/29/23 16:39 O2 Del Method Nasal Cannula 06/29/23 16:39 Oxygen Flow Rate 3 06/29/23 16:39 BMI result Body Mass Index 25.6 vital signs have been reviewed as normal and appeared to be correct. Blood pressure 100/59 Heart rate normal. Respiration rate normal. Temperature normal. Oxygen saturation normal. Appearance: Alert. Oriented X3. No acute distress. Head: Normal external exam. Normocephalic. Atraumatic. Eyes: PERRLA. EOMI. Conjunctiva and sclera normal. Eyelids normal. ENT: Pharynx normal. Uvula midline. Moist mucous membranes. Neck: Normal inspection. Neck supple. FROM. CVS: Normal heart rate and rhythm. Respiratory: No respiratory distress. Painless inspiration. Abdomen: Abdomen is soft nontender. Nondistended. No guarding. No CVA tenderness. No signs of trauma. No hepatomegaly or splenomegaly noted. Skin: Skin warm and dry. Normal skin color. Normal skin turgor. No rashes/lesions/lacerations noted. Extremities: No lower extremity edema. Extremities exhibit normal range of motion. Extremities nontender. Neuro: Oriented X 3. No motor deficit. No sensory deficit. Reflexes normal. Laying in bed. Gait not tested due to left hip fracture per patient. No focal neuro deficits noted. Vascular: + radial pulses/+ 2 distal pedal pulses/+2 dorsalis pedis b/l. Normal cap refill. No cyanosis noted to upper extremity nails and lower extremity toes nails. Course Course Course Narrative: Patient with metastatic lung cancer presenting to have her Stearns catheter removed. Does not want any labs, imaging, treatments or consult at this time. She just wants her Stearns catheter removed and she wants to go back home to hospice. She denies any other symptoms complaints or concerns. Therefore stearns catheter will remove it she will be sent back home to hospice. Medical Decision Making Medical Decision Making MDM Narrative: see course Differential Diagnosis Differential Diagnoses: The differential diagnosis associated with the presentation includes see course Independent Historian Clinical information obtained from an independent historian. History obtained from or confirmed by: EMS External Record Review External record reviewed: Inpatient record, Office record, Outpatient record, Prior outpatient labs, Prior outpatient radiology, Primary care record and Outside ED record All prior labs/imaging/EKG and notes that are accessible in our system reviewed by myself Tests considered The following testing was considered but not selected: I did consider blood work, blood cultures, lactate, UA although patient is refusing all labs and imaging reports she is on hospice. She is alert oriented x3 able to make her own medical decisions therefore will only change Stearns catheter and send patient back home as requested. Chronic Conditions Patient?s care impacted by: Cancer Social Determinants Patient?s care significantly limited by Social Determinants of Health including: Other Social Determinant of Health Discharge Plan Discharge Clinical Impression: Encounter for Stearns catheter removal Patient Disposition: Home, Self-Care Instructions: Stearns Catheter Removal (DC) Prescriptions: No Action azithromycin [Zithromax Z-Fermin] 250 mg tablet See Rx Instructions .ROUTE .COMPLEX Qty: 6 0RF Rx Instructions: take 500 mg today (day 1), then 250 mg for 4 days (days 2-5) ibuprofen 600 mg tablet 600 mg PO Q6H PRN (Reason: pain) Qty: 30 0RF morphine 15 mg tablet 15 mg PO Q6H PRN (Reason: pain) 3 Days Qty: 8 0RF Rx Instructions: patient may partial fill - okay azithromycin 250 mg tablet 250 mg PO DAILY 4 Days Qty: 4 0RF Rx Instructions: start on day 2 of therapy amoxicillin-pot clavulanate [Augmentin] 500-125 mg tablet 1 tab PO BID Qty: 14 0RF albuterol sulfate 90 mcg/actuation HFA aerosol inhaler 1 inh inhalation QID PRN (Reason: shortness of breath or wheezing) Qty: 8.5 0RF oxycodone-acetaminophen [Percocet] 5-325 mg tablet 1 tab PO Q8H PRN (Reason: pain) Qty: 12 0RF Rx Instructions: Partial Fill upon patient request. fluconazole [Diflucan] 100 mg tablet 100 mg PO DAILY Qty: 1 0RF fluconazole [Diflucan] 150 mg tablet 150 mg PO DAILY Qty: 1 0RF doxycycline hyclate 100 mg tablet 100 mg PO BID Qty: 20 0RF Referrals: Physician,Unknown J [Primary Care Provider] - 1 day (your pcp)
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
[2023-06-29 19:14] VITALS: BP 108/65; PULSE 96; RESP 16; TEMP 36.6; O2SAT 90
--- NOTE | 2023-06-29 19:23 | PC.NURSE ---
Addendum entered by Deepti Kong 06/29/23 19:23: water provided per pt request. Original Note: axox4, vss, respirations even and unlabored. awaiting ems transfer home; daughter aware. call [facility]hal within reach.
[2023-06-29 21:40] VITALS: BP 106/68; PULSE 93; RESP 16; TEMP 36.6; O2SAT 90
== END 2023-06-29 22:11 | disposition home or self-care (01) ==
PROVIDERS: Emergency Provider Emergency Medicine
DX: Z46.6 Encounter for fitting and adjustment of urinary device (principal); C34.90 Malignant neoplasm of unspecified part of unspecified bronchus or lung; J44.9 Chronic obstructive pulmonary disease, unspecified; F17.200 Nicotine dependence, unspecified, uncomplicated
CPT/HCPCS: 99282; 99284

== ENCOUNTER 2023-09-10 17:20 | Emergency (ER) | payer OTHER, SELFPAY ==
--- NOTE | 2023-09-10 17:33 | ECG_ITS ---
Test Reason : INTUBATED, TACHY Blood Pressure : / mmHG Vent. Rate : 173 BPM Atrial Rate : 000 BPM P-R Int : 000 ms QRS Dur : 072 ms QT Int : 274 ms P-R-T Axes : 000 088 081 degrees QTc Int : [address] & T wave abnormality, consider inferior ischemia Abnormal ECG When compared with ECG of 10-MAR-2023 21:12, Vent. rate has increased BY [address] now depressed in Inferior leads ST now depressed in Anterior leads T wave amplitude has increased in Anterior leads Nonspecific T wave abnormality now evident in Lateral leads Referred By: Rosalinda Zimmerman Electronically Signed By:Darryl Gentile
[2023-09-10] MEDS: fentaNYL citrate/NS 1,000 MCG/100 ML PLAST..BAG 2.5 MCG IVCONT (17:38)
--- NOTE | 2023-09-10 17:58 | ED.GENADULT ---
HPI - General Adult General Chief complaint: Cardiac Arrest/CPR Stated complaint: UNRESPONSIVE Time Seen by Provider: 09/10/23 17:24 Source: family and EMS Mode of arrival: EMS Limitations: other History of Present Illness HPI narrative: Patient comes to the emergency room via EMS. Patient was unresponsive in her house. Patient is known to have metastatic lung cancer, brain cancer. Patient's family was starting to work on hospice for the patient. However, seems that there was some family disagreement, they asked the hospice nurse to leave and the process was never completed. When EMS arrived to the patient's house, patient was saturating in the low 60s/70s, patient was unresponsive but clench, call the hospital for medical control, they were instructed to give 100 mcg of fentanyl and 2 of Versed. However, EMS was unable to intubate the patient. When patient arrived, they were ventilated her via Ambu bag. On arrival, there were no advanced directives/MOLST form available. Patient was intubated. Related Data Previous Rx's Medication Instructions Recorded azithromycin 250 mg tablet See Rx Instructions PO .COMPLEX #6 02/06/22 (Zithromax Z-Fermin) tabs ibuprofen 600 mg tablet 600 mg PO Q6H PRN pain #30 tabs 02/06/22 morphine 15 mg immediate release 15 mg PO Q6H PRN pain 3 days #8 02/06/22 tablet tabs albuterol sulfate 90 mcg/actuation 1 inh inhalation QID PRN shortness 12/14/22 aerosol inhaler of breath or wheezing #8.5 grams amoxicillin 500 mg-potassium 1 tab PO BID #14 tabs 12/14/22 clavulanate 125 mg tablet (Augmentin) azithromycin 250 mg tablet 250 mg PO DAILY 4 days #4 tabs 12/14/22 fluconazole 100 mg tablet 100 mg PO DAILY #1 tab 12/14/22 (Diflucan) oxycodone-acetaminophen 5 mg-325 1 tab PO Q8H PRN pain #12 tabs 12/14/22 mg tablet (Percocet) doxycycline hyclate 100 mg tablet 100 mg PO BID #20 tabs 03/10/23 fluconazole 150 mg tablet 150 mg PO DAILY #1 tab 03/10/23 (Diflucan) Allergies Allergy/AdvReac Type Severity Reaction Status Date / Time No Known Allergies Allergy Verified 12/14/22 16:01 [No Known Allergies*] Review of Systems Review of Systems: Yes Other [facility] Past Medical History Medical History (Updated 09/10/23 @ 19:20 by Rosalinda Zimmerman MD) Brain cancer Metastatic lung cancer (metastasis from lung to other site) Bursitis Chronic back pain COPD (chronic obstructive pulmonary disease) Anxiety Social History Social History Alcohol intake: former Patient Tobacco Use Status: Current everyday Tobacco user Substance Use Type: Former Substance User Advance Directives: No Advance Directives Information Provided: No Physical Exam ED Vital Signs: Vital Signs - 24 hr 09/10/23 18:17 Fraction of Inspired Oxygen 50 Const Other: Appearance: Unresponsive Eyes: Dilated, unreactive to light ENT: Pharynx normal. Large amount of mucus present Neck: Normal inspection. Neck supple. No lymph nodes noted. No crepitus CVS: Tachycardic, heart rate in the 170s Respiratory: And respiratory failure, being ventilated via Ambu bag Abdomen: Soft and nontender. No rigidity. No distention. Skin: Skin cold, mottled Extremities: No lower extremity edema. No Lacerations. No Rash Neuro: Unresponsive Psych: Unresponsive Course Course Course Narrative: -patient's family is waiting in the family room. I discussed with the patient's daughter and the patient's mother or the healthcare proxy and power of real estate associate attorney, the patient's prior wishes and her current medical situation. Both, patient's mother and daughter are agreeable that the patient never wanted to have any hemorrhoid treatment. Patient was aware that even chemotherapy or radiation would not help her, and wanted to be comfortable. 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 Per family's request, we will keep the patient intubated for a few minutes to allow them to say goodbye. -patient was extubated, patient is family requested to be in the room for extubation. -patient slowly desaturated, became bradycardic, time of 20:36, family at bedside Medications Administered Generic Name Dose Route Start Last Admin Trade Name Freq PRN Reason Stop Dose Admin Fentanyl 1,000 mcg in 100 mls @ 0 mls/hr 09/10/23 18:00 09/10/23 18:20 Sublimaze/Ns IVCONT Infused .Q0M [facility] Titration Protocol Per Protocol Procedures Intubation sedative: Etomidate Mg Given: 20 paralytic: Rocuronium Mg Given: 100 Laryngoscope: other (GlideScope) ET Tube Size: 7.5 ET Tube Uncuffed: No Tube Secured Depth (cm): 24 Tube Secured Location: teeth Tube Placement Confirmation: visualized tube passing through cords, equal breath sounds bilaterally, no breath sounds over epigastrium and confirmation by capnometry Patient Tolerated Procedure: well Intubation Complications: none Medical Decision Making Lab Data 09/10/23 15:51 09/10/23 15:51 Labs: Lab Results 09/10/23 Range/Units 15:51 WBC 11.4 H (4.8-10.8) X10*3/uL RBC 3.19 L D (4.20-5.50) X10*6/uL Hgb 9.7 L D (12.0-16.0) g/dl Hct 31.1 L D (37.0-47.0) % MCV 97.5 (80.0-98.0) fL MCH 30.4 (27.0-33.0) pg MCHC 31.2 (31.0-35.0) g/dl RDW 13.7 (11.0-16.0) % Plt Count 213 D (160-400) X10*3/uL MPV 8.8 L (9.4-12.3) fL Immature Gran % (Auto) 0.7 H (0.0-0.4) % Neut % (Auto) 80.1 H (45-73) % Lymph % (Auto) 9.5 L (20-40) % [place]bud % (Auto) 9.4 (2-11) % Eos % (Auto) 0.0 (0-4) % Baso % (Auto) 0.3 (0-2) % Lymph # (Auto) 1.1 L (1.2-4.9) X10*3/uL [place] # (Auto) 1.1 (0.1-1.2) X10*3/uL Eos # (Auto) 0.0 (0.0-0.4) X10*3/uL Baso # (Auto) 0.0 (0.0-0.2) X10*3/uL Abs Immat Gran (auto) 0.08 H (0.00-0.03) X10*3/uL Absolute Neuts (auto) 9.1 H (2.0-8.3) x10*3/uL Absolute Nucleated RBC 0.000 (0.0-0.012) X10*3/uL Nucleated RBC % (auto) 0.0 (0.0-0.2) /100WBC Sodium 150 H (135-145) mmol/L Potassium 1.1 L* D (3.3-5.1) mmol/L Chloride 142 H D (96-108) mmol/L Carbon Dioxide 8 L* D (22-29) mmol/L Anion Gap 1 L (12-20) BUN 4 L (9-16) mg/dL Creatinine < 0.20 L (0.5-1.4) mg/dL Estim Creat Clear Calc TNP Estimated GFR > 60 Random Glucose 53 L* (60-115) mg/dL Calcium 2.0 L* D (8.4-10.2) mg/dL Magnesium < 0.6 L* (1.6-2.6) mg/dL Total Bilirubin 0.4 (0.0-1.0) mg/dL Direct Bilirubin 0.2 (0.0-0.5) mg/dL AST < 3 L (5-31) U/L ALT < 5 (0-31) U/L Alkaline Phosphatase 14 L (39-117) U/L Troponin I High Sens 7.0 (<3.5-17.0) ng/L B-Natriuretic Peptide 67 (<100) pg/mL Total Protein 1.1 L (6.5-8.0) g/dL Albumin 0.5 L (3.5-5.0) g/dL Lipase < 4 L (8-78) U/L TSH 0.23 L (0.32-4.0) uIU/mL Acetaminophen < 3 (<30) mcg/mL Ethyl Alcohol < 10 mg/dL Critical Care Time Critical Care Time Critical Care Time: Yes Total Critical Care Time: 60 Attestation: I have personally provided critical care time. Time includes review of lab data, radiology results, discussion with consultants, and monitoring for potential decompensation. Intervention performed as documented. Discharge Plan Discharge Clinical Impression: Metastatic lung cancer (metastasis from lung to other site), Respiratory failure Patient Disposition: Prescriptions: No Action azithromycin [Zithromax Z-Fermin] 250 mg tablet See Rx Instructions .ROUTE .COMPLEX Qty: 6 0RF Rx Instructions: take 500 mg today (day 1), then 250 mg for 4 days (days 2-5) ibuprofen 600 mg tablet 600 mg PO Q6H PRN (Reason: pain) Qty: 30 0RF morphine 15 mg tablet 15 mg PO Q6H PRN (Reason: pain) 3 Days Qty: 8 0RF Rx Instructions: patient may partial fill - okay azithromycin 250 mg tablet 250 mg PO DAILY 4 Days Qty: 4 0RF Rx Instructions: start on day 2 of therapy amoxicillin-pot clavulanate [Augmentin] 500-125 mg tablet 1 tab PO BID Qty: 14 0RF albuterol sulfate 90 mcg/actuation HFA aerosol inhaler 1 inh inhalation QID PRN (Reason: shortness of breath or wheezing) Qty: 8.5 0RF oxycodone-acetaminophen [Percocet] 5-325 mg tablet 1 tab PO Q8H PRN (Reason: pain) Qty: 12 0RF Rx Instructions: Partial Fill upon patient request. fluconazole [Diflucan] 100 mg tablet 100 mg PO DAILY Qty: 1 0RF fluconazole [Diflucan] 150 mg tablet 150 mg PO DAILY Qty: 1 0RF doxycycline hyclate 100 mg tablet 100 mg PO BID Qty: 20 0RF
--- NOTE | 2023-09-10 18:04 | PC.NURSE ---
patient brought in via ems. port was that patient was found down at home by daughter, last known well was yesterday but ? unresponsive x 2 days. patient intubated upon arrival. family arrived and MD spoke with them. decision for chore worker. patient cleaned and plan to be extubated when family bought back to room 9.
[2023-09-10 18:10] LABS: MANUAL DIFF FLAG NO
[2023-09-10 18:16] LABS: Basophils Percent Auto 0.3 % (0-2); Hematocrit 31.1 % (37.0-47.0); Hemoglobin 9.7 g/dl (12.0-16.0); Imm Gran Abs Auto 0.08 X10*3/uL (0.00-0.03); Imm Gran Pct Auto 0.7 % (0.0-0.4); Lymphocytes Absolute Auto 1.1 X10*3/uL (1.2-4.9); Lymphocytes Percent Auto 9.5 % (20-40); Mean Corpuscular HGB Conc 31.2 g/dl (31.0-35.0); Mean Corpuscular Hemoglobin 30.4 pg (27.0-33.0); Mean Corpuscular Volume 97.5 fL (80.0-98.0); Mean Platelet Volume 8.8 fL (9.4-12.3); Monocytes Absolute Auto 1.1 X10*3/uL (0.1-1.2); Monocytes Percent Auto 9.4 % (2-11); Neutrophils Absolute Auto 9.1 x10*3/uL (2.0-8.3); Neutrophils Percent Auto 80.1 % (45-73); Platelet Count 213 X10*3/uL (160-400); Red Blood Count 3.19 X10*6/uL (4.20-5.50); Red Cell Distribution Width 13.7 % (11.0-16.0); White Blood Count 11.4 X10*3/uL (4.8-10.8)
[2023-09-10 18:17] VITALS: BP 165/110; PULSE 152; O2SAT 99
--- NOTE | 2023-09-10 18:21 | PC.NURSE ---
patient extubated at 1820. family at bedside.
[2023-09-10 18:44] LABS: Acetaminophen LAB < 3 mcg/mL (<30); Ethanol < 10 mg/dL
[2023-09-10 18:50] LABS: Alanine Aminotransferase < 5 U/L (0-31); Albumin Level 0.5 g/dL (3.5-5.0); Alkaline Phosphatase 14 U/L (39-117); Anion Gap 1 (12-20); Aspartate Amino Transferase < 3 U/L (5-31); Bilirubin Direct 0.2 mg/dL (0.0-0.5); Bilirubin Total 0.4 mg/dL (0.0-1.0); Blood Urea Nitrogen 4 mg/dL (9-16); Carbon Dioxide 8 mmol/L (22-29); Chloride 142 mmol/L (96-108); Estimated Glomerular Filt Rate > 60; Glucose Random 53 mg/dL (60-115); Lipase < 4 U/L (8-78); Magnesium < 0.6 mg/dL (1.6-2.6); Potassium 1.1 mmol/L (3.3-5.1); Sodium 150 mmol/L (135-145); Total Protein 1.1 g/dL (6.5-8.0)
--- NOTE | 2023-09-10 18:53 | PC.NURSE ---
COURTNEY called, pt on hold for ME decision and to report time pt moved to [facility].
[2023-09-10 18:59] LABS: TSH reflex Free T4 0.23 uIU/mL (0.32-4.0)
[2023-09-10 19:13] LABS: B Type Natriuretic Peptide 67 pg/mL (<100)
[2023-09-10 20:15] LABS: Free T4 (Free Thyroxine) 0.66 ng/dL (0.71-1.85)
[2023-09-11 07:25] LABS: Glucose, Whole Blood 187 mg/dL (60-115)
== END 2023-09-10 22:00 | disposition expired ==
PROVIDERS: Emergency Provider Emergency Medicine
DX: C71.9 Malignant neoplasm of brain, unspecified (principal); C78.00 Secondary malignant neoplasm of unspecified lung; J96.90 Respiratory failure, unspecified, unspecified whether with hypoxia or hypercapnia; J44.9 Chronic obstructive pulmonary disease, unspecified; F41.9 Anxiety disorder, unspecified; F17.200 Nicotine dependence, unspecified, uncomplicated
CPT/HCPCS: 31500; 36415; 80048; 80076; 80143; 80307; 82947; 83690; 83735; 83880; 84439; 84443; 84484; 85025; 93005; 94002; 96374; 99282; 99285; J3010

== ENCOUNTER → 2023-09-11 13:38 | Outpatient (BNV) | payer SELFPAY | PROVIDERS: Emergency Provider Emergency Medicine; Visit Provider Internal Medicine Cardiovascular Disease | DX: I47.10 Supraventricular tachycardia, unspecified (principal); R94.31 Abnormal electrocardiogram [ECG] [EKG] | CPT/HCPCS: 93010 ==